=== PATIENT | female | born 1955 | race Caucasian/White ===

== ENCOUNTER → 2025-01-24 | Outpatient (CLI) | payer MEDICARE, MEDICAID ==
[~2025-01-24] MED LIST: LASIX20 MG PO; NORVASC5 MG PO; OMEPRAZOLE D/R20 MG PO; PANTOPRAZOLE SO40 MG PO; Synthroid,Levo50 MCG PO
== END | disposition home or self-care (01) ==
LOC: RAD 10:47 → LAB 10:47
PROVIDERS: ATTEND Registered Nurse
DX: R19.7 Diarrhea, unspecified (principal)